=== PATIENT | female | born 1970 | race African-American/Black ===

== ENCOUNTER 2017-10-24 23:16 | Emergency (ER) | payer SELFPAY ==
[~2017-10-24] VITALS: Ht 152.4 cm; Wt 77.0 kg
[2017-10-24 23:28] VITALS: BP 129/85
== END 2017-10-25 02:21 | disposition home or self-care (01) ==
LOC: ER 23:16
DX: R05 Cough (principal)
CPT/HCPCS: 71045; 87804; 99285